=== PATIENT | female | born 1950 | race Native Hawaiian/Other Pacific Islander ===

== ENCOUNTER 2017-02-17 14:39 | Emergency (ER) | payer MEDICARE ==
[2017-02-17] VITALS (7 sets, daily range): BP systolic 112–161; BP diastolic 74–126; PULSE 79–136; RESP 12–22; O2SAT 88–100
[~2017-02-17] VITALS: Ht 160 cm; Wt 75.0 kg
[2017-02-17] MEDS ORDERED: Ondansetron 2 mg/mL 2 mL Inj IVPUSH ONE (14:55)
[2017-02-17] MEDS: MeTOProlol 1 mg/mL 5 mL Inj IVPUSH PRN ×2 (15:05→15:07)
--- NOTE | 2017-02-17 15:11 | ED.REPORT ---
HPI-Chest Pain 40 and Over Date of Service February 17, 2017 ED Provider: Cassius Lowe MD The patient is a pleasant 66 yo [place] female with history of Type 2 DM, HTN, hyperlipidemia, and gout who was sent to the ED for chest pain and palpitations during a cardiac stress test today. Patient reports chest discomfort from racing heart rate and shortness of breath while she was on the treadmill. Her HR was in 120-150 and BP up to 202/94 today. Patient reports similar symptom in 11/16/16, which prompted her ER visit. She was found to have narrow QRS tachycardia and was treated for PSVT. Her Atenolol was increased from 50mg once daily to twice daily at that time. She was also referred to cardiology with Dr. Garcia, who ordered the overnight oximetry, Echo, and stress test. According to Dr. Garcia, her tachycardia is likely multifocal atrial tachycardia with no atrial flutter activities or Afib. Her Echo was done on 02/09/17 which was normal with EF 65-70% with no valvular pathology. Her stress test was done today and no report is available at this time. Patient also admits to self-limited, intermittent chest discomfort episodes that last a couple seconds. She is not aware of the trigger for the chest discomfort. She also has had a persistent, nonproductive cough for 1 week. She denies chronic cough, shortness of breath, headache, dizziness, nausea, or vomiting. By the time the patient arrives to the ER, her symptoms have pretty much resolved. Patient denies However, EKG reveals Atrial flutter with HR in the 130s-110s. Nursing Notes Stated Complaint: RAPID HEART RATE Chief Complaint: Dysrhythmia/Cardiac Nursing Notes Reviewed: Yes Allergies: Coded Allergies: No Known Allergies (Unverified , 02/17/17) General Time Seen by MD: 15:05 Chief Complaint Chest pressure, Shortness of breath Hx Obtained From: Patient, Son Arrived By: Ambulance Sudden in Onset?: Yes Onset Occurred: Just prior to arrival Context of Onset: Other (during cardiac stress test) Symptom Duration: Intermittent Location: : Chest left Radiation: : Does not radiate Migration/Movement: Reports: None Severity: Current: No pain currently Severity: Maximum: Mild Associated with: Reports: Cough, non-productive, Palpitations, Shortness of Breath, Denies: Dizziness, Lightheaded, Nausea, Near-syncope, Syncope, Vomiting, Weakness, Wheezing Pertinent Negative: Pt denies other symptoms Pertinent Negative: Exacerbated by nothing, Relieved by nothing Recent Healthcare: Recent doctor visit, Recent testing Similar Sx Previous: Yes Past Medical History Past Medical History Notes: Type 2 DM HTN Hyperlipidemia Gout Past Surgical History Bilateral oophorectomy, unknown if had hysterectomy as well. Smoking History Former Smoker (Used to smoke 1ppd for 8-9 years. Quit since 10/2016) Social History Alcohol Use: Denies alcohol use Drug Use: Denies drug use Other Social History: Good social support, , Lives with children Ambulatory Status Independent Review of Systems Basic Review of Systems Eyes: Vision NL ENT: Hearing NL, No pain, No nasal congestion : No dysuria, No frequency Hematologic: No bleeding, No bruising Allergy / Immune: No allergy Constitutional: Reports: Fatigue, Denies: Chills, Fever Respiratory: Reports: Non-productive cough, Shortness of breath Cardiovascular: Reports: Palpitations, Denies: Edema, Syncope GI: Denies: Abdominal pain, Vomiting Neurologic: Denies: Abnormal movement, Bowel dysfunction, Change LOC, Confusion , Dizziness, Headache, Lightheaded, Numbness, Problem walking, Syncope Psychiatric: Denies: Confusion, Insomnia, Stress Complete sys rev & neg: except as marked. Physical Exam Initial Vital Signs Vital Signs (First) Date Time Temp Pulse Resp B/P Pulse Ox O2 Delivery O2 Flow Rate FiO2 02/17/17 14:48 36.7 136 15 161/126 100 Nasal Cannula 2 Initial VS: Reviewed Head / Eyes: Atraumatic, Normocephalic, PERRL ENT: Mucous membranes moist, Conjunctiva normal Neck: Supple, Non-tender Lymphatic: No lymphadenopathy Extremities: Vascular intact, No swelling, No tenderness Skin: Warm, Dry, No cyanosis Neurologic: Alert, Oriented, Nonfocal Psychiatric: Mood/affect normal, Behavior normal, Normal thought content Respiratory / Chest: No respiratory distress, No rhonchi, No wheezing, No retractions, No stridor, No chest tenderness Resp Distress / Stridor: Positive: Speaks phrases Rales / Rhonchi: Positive: Rales bilateral bases Cardiovascular: Regular rhythm, No gallop, No murmurs Heart Rate / Rhythm: Positive: Tachycardia Abdomen: Atraumatic, Non-tender, No guarding, No rebound, BS normoactive, No distention, No palpable mass Neurologic: Oriented X3, Speech NL, No motor deficits, No sensory deficits Ankle / Foot: Atraumatic, No swelling, No erythema, Non-tender, No deformity, Neurologic intact Interpretation & Diagnostics Lab Results Interpretation Result Diagram: 02/17/17 1450 02/17/17 1450 Test 02/17/17 14:50 02/17/17 18:30 White Blood Count 8.3th/mm3 (3.8-10.1) Red Blood Count 4.11mil/mm3 (3.90-5.20) Hemoglobin 12.6g/dL (12.0-15.6) Hematocrit 38.1% (35.0-46.0) Mean Corpuscular Volume 92.7fL (81-100) Mean Corpuscular Hemoglobin 30.7pg (27.0-35.0) Mean Corpuscular Hemoglobin Concent 33.1% (32.0-37.0) Red Cell Distribution Width 11.8% (12.3-15.4) Platelet Count 246bil/L (150-400) Neutrophils (%) (Auto) 47.0% (40-74) Lymphocytes (%) (Auto) 42.5% (14-46) Monocytes (%) (Auto) 7.6% (4-12) Eosinophils (%) (Auto) 2.5% (0-5) Basophils (%) (Auto) 0.2% (0-3) Sodium Level 137mEq/L (134-144) Potassium Level 4.1mEq/L (3.5-5.2) Chloride Level 100mEq/L (97-108) Carbon Dioxide Level 21mmol/L (18-29) Blood Urea Nitrogen 14mg/dL (8-27) Creatinine 0.93mg/dL (0.57-1.00) Estimat Glomerular Filtration Rate 86mL/min (>59) Glucose Level 104mg/dL (60-99) Calcium Level 9.5mg/dL (8.5-10.1) Magnesium Level 2.0mg/dL (1.6-2.6) Total Bilirubin 0.3mg/dL (0.0-1.2) Aspartate Amino Transf (AST/SGOT) 31U/L (0-50) Alanine Aminotransferase (ALT/SGPT) 21U/L (0-32) Alkaline Phosphatase 87U/L (25-165) Total Protein 8.7g/dL (6.4-8.4) Albumin 3.8g/dL (3.4-5.0) Thyroid Stimulating Hormone (TSH) 2.970uIU/mL (0.450-4.500) Free Thyroxine 1.15ng/dL (0.82-1.77) Hold Milner Top Tube Received (Received) Troponin T < 0.010ug/L (0.0-0.011) Re-Eval/Medical Decision Med Decision/Clinical Course The patient is a 66 yo female who presented to the ER with new-onset Aflutter and heart rate in the 130s during her cardiac stress test today. She had similar symptoms in 10/2016 and was seen by cardiology, Dr. Garcia, as outpatient recently. Her recent Echo did not reveal any abnormalities. Her labs , including TSH, were within normal limit and Troponin was negative x2. She was rate controlled with Metoprolol IV 5mg x 3 with no change in her rhythm. Cardiology, Dr. Leyva, was consulted in the ER and recommended to start Diltiazem and possible cardioversion if she did not convert. However, patient spontaneously converted before the Diltiazem. Repeat EKG showed normal sinus rhythm with HR of 75. No ST changes was appreciated. No stress test report was available at the time of discharge, but since both her EKG and labs were reassuring, patient was discharged home with plan to follow up with her PCP and cardiology as out patient. Source of Hx: Old records, Family Time of Eval: 17:00 Patient Status: Condition unchanged (Rhythm continues to be Aflutter with HR in the 120s-110s) Re-Evaluation/Progress Note: Paged Dr. Leyva at 1700, who returned the called. Dr. Leyva recommended to continue rate control with either IV Metoprolol or IV Diltiazem (10mg) if her BP supports. If she does not convert and patient has not eaten > 6 hours, can cardiovert her. Dr. Leyva does not think the patient needs to be admitted to the hospital if cardioversion works. Dr. Hull will read the stress test tonight. Diltiazem dose was calculated to be 20mg based on her weight. Lab results and cardiology's recommendations were discussed with the patient. Will continue to monitor her heart rhythm/rate and vital signs. Re-Evaluation at 1810: Patient spontaneously converted to normal sinus rhythm at rate of 75 before the diltiazem was given. She got a total of 15mg of IV Metoprolol. Will redraw her Troponin and she will likely be discharged with outpatient cardiology follow-up. Counseled Regarding: Diagnosis, Need for follow-up, When/why to return to ED Discharge & Departure Shift Change Sign-Out Discussed Complaint(s): Yes Laboratory Evaluation: Lab evaluation discussed Imaging Studies: Imaging discussed Response to Therapy: Improved Primary Impression: Chest pain Chest pain type: precordial pain Qualified Code: R07.2 - Precordial pain Additional Impression: Atrial flutter Atrial flutter type: typical Qualified Code: I48.3 - Typical atrial flutter Disposition: Home Discharge Condition All VS Reviewed: Yes Condition: Stable Patient Instructions: Palpitations (ED) Additional Instructions: Your heart rate was fast and the rhythm was irregular. However, both of these resolved with a rate-control medication (Metoprolol). Please continue to take all your medications as directed. We did not make any changes to your medication. You will need to follow up with your primary care doctor and Dr. Garcia in a week. Dr. Garcia will discuss with you about your stress test result as it is not available now. Please follow up with your PCP for the cough if it worsens. The chest XR today showed some mild swelling (edema) in your lungs. You might need additional imaging that will be ordered by your PCP. Return to the ER if your symptoms return and/or you develop chest pain, headache , or change in mental status. Referrals: Mary Sears PA-C (PCP) 1 Week Eneida Garcia MD 1 Week Attending Statement I personally saw and examined this patient with on February 17. I agree with the above exam impression and plan copies to: Eneida Garcia MD; Mary Sears PA-C, Donald L MD February 17, 2017 15:11 Jenniffer Boudreaux DO February 17, 2017 15:57
[2017-02-17 15:50] LABS: BASOPHILS % (AUTO) 0.2 % (0-3); EOSINOPHILS % (AUTO) 2.5 % (0-5); MONOCYTES % (AUTO) 7.6 % (4-12); Mean Corpuscular Hemoglobin 30.7 pg (27.0-35.0); Mean Corpuscular Volume 92.7 fL (81-100); Platelet Count 246 bil/L (150-400)
[2017-02-17 16:21] LABS: TROPONIN T < 0.010 ug/L (0.0-0.011)
--- NOTE | 2017-02-17 16:37 | DRSVH ---
PROCEDURE: X-RAY CHEST ONE VIEW, PORTABLE ([id number]) INDICATIONS: cough, palpitations TECHNIQUE: One view of the chest was acquired. COMPARISON: None. FINDINGS: Surgical changes and devices: None. Lungs and pleura: No pleural effusions or pneumothorax. Lungs are mildly edematous. Mediastinum: Mediastinal contours appear normal. Heart size is normal. Bones and chest wall: No suspicious bony lesions. Overlying soft tissues appear unremarkable. IMPRESSION: Mild edema pattern within the lungs, but the inspiratory volume is reduced and this can p roduce a false positive since of pulmonary edema. Obtaining a deep inspiratory PA and lateral chest plain film would be helpful for more accurate assessment. Dictated by: Ramón Bob M.D. on 02/17/2017 at 16:34 Approved by: Ramón Bob M.D. on 02/17/2017 at 16:35
[2017-02-17] MEDS ORDERED: Diltiazem 5 mg/mL 5 mL Inj IVPUSH ONE (17:35)
== END 2017-02-17 19:26 | disposition home or self-care (01) ==
LOC: SED 14:39
DX: I48.3 Typical atrial flutter (principal); I10 Essential (primary) hypertension; E78.5 Hyperlipidemia, unspecified; E11.9 Type 2 diabetes mellitus without complications; Z87.891 Personal history of nicotine dependence